=== PATIENT | male | born 1980 | race Caucasian/White ===

== ENCOUNTER → 2016-11-02 | Outpatient (CLI) | payer OTHER ==
[~2016-11-02] MED LIST: No Home Meds
--- NOTE | 2016-11-02 08:52 | DIAGNOSTIC IMAGING REPORT ---
NECK ULTRASOUND CLINICAL HISTORY: Lymphadenopathy. COMPARISON STUDY: Neck ultrasound March 23, 2016. TECHNIQUE: Sonography of the neck was performed. FINDINGS: No enlarged cervical lymph nodes are identified by sonography. An index right sided cervical lymph node measures 0.8 x 0.4 x 0.6 cm and a left-sided cervical lymph node measures 0.9 x 0.4 x 0.4 cm. These nodes each contain a fatty hilum. One to one comparison of nodes is difficult given sonographic technique but the nodes appear to be decreased in size since prior exam. IMPRESSION: No enlarged cervical lymph nodes by sonography. Interval decrease in size of bilateral cervical lymph nodes since prior exam. Electronically signed by: Wilton Cruz M.D. 11/02/2016 8:51 AM Dictated Date/Time: 11/02/2016 8:47 AM
== END | disposition home or self-care (01) ==
LOC: C.ULTR 08:10
PROVIDERS: ATTEND Nurse Practitioner
DX: R59.0 Localized enlarged lymph nodes (principal)